=== PATIENT | male | born 1970 | race Caucasian/White ===

== ENCOUNTER 2016-11-20 08:43 | Emergency (ER) | payer OTHER ==
[2016-11-20] MEDS ORDERED: Ipratropium 0.5MG/2.5ML NEB* 0.5 MG/2.5 ML NEB.SOLN INH ONE (08:48)
[2016-11-20] MEDS ORDERED: predniSONE TAB* 20 MG PO ONE (08:48)
[2016-11-20] MEDS ORDERED: Albuterol 2.5 MG/3 ML NEB.SOL* (0.083%) INH ONE (08:48)
[2016-11-20 08:52] VITALS: BP 140/69
--- NOTE | 2016-11-20 09:04 | UC ---
Asthma HPI - HPI Summary HPI Summary: WOKE UP THIS MORNING FEELING TIGHT AND SOB. COUGHING MORE THAN NORMAL. USED HIS ADVAIR AND ALBUTEROL TWICE WITH SLIGHT IMPROVEMENT IN SX. FEELS LIKE HIS ASTHMA. NO FEVER, N/V/D. - History of Current Complaint Stated Complaint: ASTHMA ATTACK Time Seen by Provider: 11/20/16 08:43 Hx Obtained From: Patient Onset/Duration: Sudden Onset, Lasting Hours, Still Present Timing: Constant Initial Severity: Moderate Current Severity: Moderate Pain Intensity: 1 Pain Scale Used: 0-10 Numeric Location/Character: Cough (Nonproductive) Aggravating: Nothing Alleviating: Inhalers/Nebulizers Associated Signs and Symptoms: Positive: Shortness of Breath. Negative: Calf Pain, Chest Pain, URI, Sinus Infection - Allergy/Home Medications Allergies/Adverse Reactions: Allergies Allergy/AdvReac Type Severity Reaction Status Date / Time No Known Allergies Allergy Verified 11/20/16 08:53 Home Medications: Home Medications Albuterol HFA INHALER* [Ventolin HFA Inhaler*] 11/20/16 [History] Fluticasone-Salmeterol 250-50* [Advair Diskus 250-50*] 11/20/16 [History] Montelukast Sodium TAB* [Singulair 10 MG TAB*] 11/20/16 [History] Sertraline HCl [Zoloft] 11/20/16 [History] buPROPion TAB* [Wellbutrin TAB*] 11/20/16 [History] PMH/Surg Hx/FS Hx/Imm Hx - Additional Past Medical History Additional PMH: ECZEMA, IBS Respiratory History Of: Reports: Asthma Psychological History Of: Reports: Depression - Surgical History Surgical History: Yes Surgery Procedure, Year, and Place: ostemia left femur age 16 - Family History Family History: ASTHMA - Social History Alcohol Use: None Substance Use Type: None Smoking Status (MU): Never Smoked Tobacco Review of Systems Constitutional: Negative Skin: Negative Respiratory: Shortness Of Breath, Cough Cardiovascular: Negative Gastrointestinal: Negative All Other Systems Reviewed And Are Negative: Yes Physical Exam Triage Information Reviewed: Yes Appearance: Well-Appearing, No Pain Distress, Well-Nourished Vital Signs: Initial Vital Signs Temp 97.8 F 11/20/16 08:47 Pulse 76 11/20/16 08:47 Resp 18 11/20/16 08:47 BP 140/69 04/09/17 08:47 Pulse Ox 97 11/20/16 08:47 Vital Signs Reviewed: Yes Eyes: Positive: Conjunctiva Clear ENT: Positive: Hearing grossly normal, Pharynx normal, TMs normal Neck: Positive: Supple, Nontender, No Lymphadenopathy Respiratory: Positive: Lungs clear, Normal breath sounds, No respiratory distress, No accessory muscle use Cardiovascular Exam: Normal Abdomen Description: Positive: Soft Musculoskeletal: Positive: No Edema Neurological: Positive: Alert Psychological: Positive: Age Appropriate Behavior Skin: Negative: rashes Re-Evaluation - Re-Evaluation First Eval Re-Evaluation Time: 09:53 - FEELS MUCH BETTER AFTER DUONEB AND 60MG PREDNISONE Change: Improved Asthma Course/Dx - Differential Dx/Diagnosis Provider Diagnoses: ASTHMA EXACERBATION Discharge - Discharge Plan Condition: Stable Disposition: HOME Prescriptions: Albuterol HFA INHALER* [Ventolin HFA Inhaler*] 2 puff INH Q4H PRN #1 mdi PRN Reason: Shortness Of Breath predniSONE TAB* [Deltasone TAB*] 50 mg PO DAILY #4 tab Patient Education Materials: Asthma (ED), Bronchospasm (ED) Referrals: Rony Plata MD [Medical Doctor] - If Needed Additional Instructions: SEEK FOLLOW-UP IF YOU DO NOT CONTINUE TO IMPROVE EXPECTED.
== END 2016-11-20 10:16 | disposition home or self-care (01) ==
LOC: UCEAST 08:43
DX: J45.901 Unspecified asthma with (acute) exacerbation (principal); F32.9 Major depressive disorder, single episode, unspecified
CPT/HCPCS: 99212; G0463; J7512; J7644

== ENCOUNTER 2017-09-12 20:18 | Emergency (ER) | payer OTHER ==
--- OUTSIDE RECORDS SUMMARY | 2017-09-12 20:23 | XMS REPORT ---
:1970 External Reference #:[id number] Author Organization [facility] Address [address] [place] [address] Phone [phone] Care Team Providers Name Role Phone Gisel Tracy M.D. 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 Social History Type Date Description Comments Smoke-Free Home is smoke-free Smoking Patient has never smoked Smoking No Second Hand Smoke Exposure Allergies, Adverse Reactions, Alerts Date Description Reaction Status Severity Comments 06/14/2017 Penicillin active Medications Medication Date Status Form Strength Qnty SIG Indications Ordering Provider Advair Diskus / Active Aerosol 250-50mcg/ Inhale One Unknown 0000 Dose puff By Mouth Twice A Day Montelukast / Active Tablets 10mg Take One Unknown Sodium 0000 Tablet By Mouth Every Day Bupropion HCL ER / Active Tablets ER 100mg Take One Unknown (SR) 0000 12HR Tablet By Mouth Every Morning Sertraline HCL / Active Tablets 100mg Take One Unknown 0000 Tablet By Mouth Every Day For 2 Weeks Then Increase To Take 1 Sertraline HCL / Active Tablets 50mg Take 1 1 Unknown 0000 2 Tablets By Mouth Every Morning Ventolin HFA / Active Aerosol 108(90Base Inhale 2 Unknown 0000 ) mcg/Act Doses Into The Lungs Four Times A Day as Needed Triamcinolone / Active Ointment 0.1% Apply A Unknown Acetonide 0000 Thin Layer To Eczema Two Times A Day 2 Weeks On And 1 Week Off Jennifer Allergy / Active Tablets 180mg 1 tab Unknown 0000 everyday as needed Hydrocortisone / Active Cream 0.5% Unknown 0000 SF 5000 Plus / Hx Cream 1.1% [place] Once Unknown 0000 - Every Day. Not 2018 Rinse For 1 Hour. Clobetasol / Hx Ointment 0.05% Apply Unknown Propionate 0000 - Topically Two Times 2017 A Day To Affected Areas as Needed . 2 Weeks Vital Signs Date Vital Result Comment 09/08/2017 BP Systolic 136 mmHg BP Diastolic 78 mmHg Height 70 inches 5'10" Weight 211.00 lb BMI (Body Mass Index) 30.3 kg/m2 Heart Rate 71 /min Respiratory Rate 12 /min Body Temperature 96.0 F O2 % BldC Oximetry 96 % 06/14/2017 Height 69.75 inches 5'9.75" Weight 201.00 lb BMI (Body Mass Index) 29.0 kg/m2 Heart Rate 64 /min Respiratory Rate 16 /min Body Temperature 96.6 F O2 % BldC Oximetry 99 % Results Description No Information Procedures Description No Information Encounters Type Date Location Provider CPT E/M Dx Office Visit 09/08/2017 8:15a [place] [address] L20.9 Office Visit 06/14/2017 11:30[place] [id number] D82.4 L20.9 Plan of Care No Information Available
--- OUTSIDE RECORDS SUMMARY | 2017-09-12 20:24 | XMS REPORT ---
:1970 External Reference #:[id number] Author Organization [facility] Address [address] [place] [address] Phone [phone] Care Team Providers Name Role Phone Elijah Plata MD Care Team Information Supervisor [employer] Unavailable Elijah Plata MD Primary Care Physician Unavailable Payers Type Date Identification Numbers Payment Provider Subscriber Commercial Policy Number: [id number] [employer] Sherri Nix PayID: [id number] [address] [place] [address] Problems Date Description Provider Status Onset: 06/14/2017 Atopic dermatitis Ezekiel Underwood MD Active Onset: 06/14/2017 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 Not 2018 Rinse For 1 Hour. Clobetasol / Hx Ointment 0.05% Apply Unknown Propionate 0000 - Topically Two Times 2018 A Day To Affected Areas as Needed [...] Location Provider CPT E/M Dx Office Visit 06/14/2017 11:30[place] [address] D82.4 L20.9 Plan of Care No Information Available
[2017-09-12 20:28] VITALS: BP 118/69
[2017-09-12] MEDS ORDERED: DOXYcycline CAP(*) 100 MG PO ONE (21:41)
[2017-09-12] MEDS ORDERED: predniSONE TAB* 20 MG PO ONE (21:41)
--- NOTE | 2017-09-12 21:52 | UC ---
Respiratory Complaint HPI - HPI Summary HPI Summary: Patient presents with a past medical history of asthma. He states he had seen Dr. Underwood and was RX an additional inhaler, he states he has been using it. He states he continues to cough up sputum and he continues to have wheezing. He states he has been using his rescue inhaler more that he is suppose to. He denies any chest pain, shortness of breath, fever, or chills. - History of Current Complaint Hx Obtained From: Patient Onset/Duration: Gradual Onset, Lasting Days Timing: Intermittent Episodes Pain Intensity: 0 Character: Cough: Productive Aggravating Factors: Deep Breaths, Recumbent Position Alleviating Factors: Bronchodilator, Upright Position, Spontaneous Resolution Associated Signs And Symptoms: Positive: URI, Nasal Congestion - Risk Factors Pulmonary Embolism Risk Factors: Negative Cardiac Risk Factors: Negative Pseudomonas Risk Factors: Chronic Steriod Use Past 3 Months Tuberculosis Risk Factors: Corticosteriod Use <Edie Leyva - Last Filed: 09/12/17 21:45> <Ibeth Amezcua - Last Filed: 09/12/17 23:17> - History of Current Complaint Chief Complaint: UCRespiratory Stated Complaint: ASTHMA Time Seen by Provider: 09/12/17 21:35 - Allergies/Home Medications Allergies/Adverse Reactions: Allergies Allergy/AdvReac Type Severity Reaction Status Date / Time MS Penicillins [Penicillins] Allergy Rash Verified 09/12/17 20:28 Home Medications: Home Medications Beclomethasone 80 MCG MDI(NF) [Qvar 80 MCG MDI(NF)] 2 puff INH BID 09/12/17 [ History Confirmed 09/12/17] PMH/Surg Hx/FS Hx/Imm Hx Previously Healthy: Yes Respiratory History: Asthma - Surgical History Surgical History: Yes Surgery Procedure, Year, and Place: ostemia left femur age 16 - Family History Known Family History: Positive: Cardiac Disease Family History: ASTHMA - Social History Occupation: Employed Full-time Alcohol Use: Rare Substance Use Type: None Smoking Status (MU): Never Smoked Tobacco <Edie Leyva - Last Filed: 09/12/17 21:45> Review of Systems Constitutional: Negative Skin: Negative Eyes: Negative ENT: Negative Respiratory: Cough Cardiovascular: Negative Gastrointestinal: Negative Genitourinary: Negative Motor: Negative Neurovascular: Negative Musculoskeletal: Negative Neurological: Negative Psychological: Negative Is Patient Immunocompromised?: No All Other Systems Reviewed And Are Negative: Yes <Edie Leyva - Last Filed: 09/12/17 21:45> Physical Exam Triage Information Reviewed: Yes Appearance: Well-Appearing Vital Signs: Initial Vital Signs Temp 97.5 F 09/12/17 20:24 Pulse 91 09/12/17 20:24 Resp 16 09/12/17 20:24 BP 118/69 09/12/17 20:24 Pulse Ox 99 09/12/17 20:24 Vital Signs Reviewed: Yes Eye Exam: Normal ENT Exam: Normal ENT: Positive: Pharynx normal, TMs normal, Uvula midline Neck exam: Normal Neck: Positive: 1 Respiratory Exam: Normal Respiratory: Positive: Wheezing, Inspiration Cardiovascular Exam: Normal Cardiovascular: Positive: RRR, No Murmur, Pulses Normal Abdominal Exam: Normal Musculoskeletal Exam: Normal Neurological Exam: Normal Psychological Exam: Normal Skin Exam: Normal <Edie Leyva - Last Filed: 09/12/17 21:45> Vital Signs: Initial Vital Signs Temp 97.5 F 09/12/17 20:24 Pulse 91 09/12/17 20:24 Resp 16 09/12/17 20:24 BP 118/69 09/12/17 20:24 Pulse Ox 99 09/12/17 20:24 <Ibeth Amezcua - Last Filed: 09/12/17 23:17> Diagnostic Evaluation - Laboratory O2 Sat by Pulse Oximetry: 99 <Edie Leyva - Last Filed: 09/12/17 21:45> Respiratory Course/Dx - Course Course Of Treatment: Patient presents with a history of asthma and was seen by his steam hand and RX additonal steroids inhaler which he is using. He continues to report cough, with increased sputum production and he states he continues to wheeze. He denies any chest pain, dyspnea, nausea or vomiting. I feel his symtpoms are most likely an exacerbation of his asthma with acute bronchtis/. He was given doxycycline 100 mg and prednisone 20 mg in the clinic and discharge home with doxy 100 mg bid x 10 days, and prednisone 20 mg bid x 5 days , and i recommend that he follow up with Dr. Underwood. - Differential Dx/Diagnosis Differential Diagnosis/HQI/PQRI: Asthma, Bronchitis Provider Diagnoses: bronchitis. asthma <Edie Leyva - Last Filed: 09/12/17 21:45> Discharge <Edie Leyva - Last Filed: 09/12/17 21:45> <Ibeth Amezcua - Last Filed: 09/12/17 23:17> - Discharge Plan Condition: Stable Disposition: HOME Prescriptions: DOXYcycline CAP(*) [DOXYcycline 100MG CAP(*)] 100 mg PO BID #20 cap predniSONE TAB* [Deltasone TAB*] 20 mg PO BID #10 tab Patient Education Materials: Asthma (DC), Acute Bronchitis (ED) Referrals: Rony Plata MD [Primary Care Provider] - Attestation Statement User Type: Provider - I was available for consult. This patient was seen by the [facility]. The patient was not presented to, seen by, or examined by me. -Rex <Ibeth Amezcua - Last Filed: 09/12/17 23:17>
== END 2017-09-12 21:55 | disposition home or self-care (01) ==
LOC: UCEAST 20:18
DX: J40 Bronchitis, not specified as acute or chronic (principal); J45.909 Unspecified asthma, uncomplicated; Z88.0 Allergy status to penicillin; Z82.5 Family history of asthma and other chronic lower respiratory diseases
CPT/HCPCS: 99212; A9270-GY; G0463; J7512